=== PATIENT | female | born 1970 | race Caucasian/White ===

== ENCOUNTER 2017-06-15 23:40 | Observation (INO) | payer SELFPAY ==
[~2017-06-15 23:40] MED LIST: LISI10TA3 PO; SODIUM CHLORIDE 0.9% FLUSH 10 ML FLUSH IV FLUSH PRN; TEMAZEPAM 15 MG CAP PO PRN
[2017-06-16] VITALS (9 sets, daily range): BP systolic 121–146; BP diastolic 76–83; PULSE 60–75; RESP 18–22; TEMP 97–98.6; O2SAT 96–99
[2017-06-16] MEDS: SODIUM CHLORIDE 0.9% FLUSH 10 ML FLUSH IV FLUSH SCH ×2 (08:45→20:26)
[2017-06-16] MEDS: LISINOPRIL 10 MG TAB PO SCH (08:46)
[2017-06-16] MEDS: HEPARIN SODIUM - SQ 10,000 UNITS/ML VIAL SQ SCH ×2 (08:46→20:26)
--- NOTE | 2017-06-16 09:32 | HHI.HP ---
HPI Service [facility] Primary Care Physician Non-Staff Admission Diagnosis Diagnoses: (1) Paresthesia Diagnosis: Principal (2) Left leg weakness Diagnosis: Principal (3) Peripheral edema Diagnosis: Principal Chief Complaint: Left-sided paresthesia, left leg weakness Travel History International Travel<30 Days: No Contact w/Intl Traveler <30 Da: No Traveled to Known Affected Are: No History of Present Illness Written by Kody Bernard, acting as scribe for Dr. Mosley on 06/16/17 at 09: 32. This is a 46-year-old female with known history of hypertension who presented to hospital because of shortness breath, dyspnea, left side appears to leg weakness. Patient states that she is in normal state of health and she went down to [facility] to volunteer in disaster relief where she did a lot of physical activity to include removal tree limbs, brush removal. She took a 3 hour bus trip back to [facility] on Thursday. Patient was doing well and then she stated on Thursday she developed general/peripheral edema in which she took one of her stepfather's Lasix and her swelling improved significantly. She was doing well until yesterday when she woke up to take the dog out and she developed shortness of breath, dyspnea on exertion. At 12 noon she started developing left arm paresthesia, left lower extremity weakness. Because of those reasons she went to the emergency department for evaluation. She denied any headache, visual disturbances, speech difficulties, difficulty eating and swallowing food, patient had workup done emergency department. As indicated that she was outside the range for any TPA administration or stroke alert. Patient has CT scan done of the brain which was unremarkable. It was recommended by ER physician that patient be observed in the hospital for further evaluation. At the time evaluating the patient states she may have some mild paresthesia left upper extremity. However the swelling, shortness of breath, weakness have improved. Review of Systems Respiratory: COMPLAINS OF: Shortness of breath Cardiovascular: COMPLAINS OF: Dyspnea on Exertion, Lower Extremity Edema Neurologic: COMPLAINS OF: Localized weakness (left lower extremity), Paresthesias Except as stated in HPI: all other systems reviewed are Neg Past Family Social History Past Medical History Hypertension Past Surgical History Tubal ligation Reported Medications Reported Meds & Active Scripts Active Reported Lisinopril 10 Mg Tab 10 Mg PO DAILY Allergies: Coded Allergies: Penicillins (Verified Allergy, Unknown, 06/15/17) Uncoded Allergies: INDERAL (Allergy, Unknown, 06/15/17) Family History Reviewed is significant for mother alive at age 68 with CHF, diabetes, AICD placement, heart disease. Father at age 64 from diabetes, he had liver transplant Social History Patient denies any tobacco, alcohol or illicit drugs Physical Exam Vital Signs Vital Signs Date Time Temp Pulse Resp B/P (MAP) Pulse Ox O2 Delivery O2 Flow Rate FiO2 06/16/17 08:00 98.1 69 19 126/79 (95) 97 06/16/17 04:00 97.0 65 20 123/82 (96) 98 06/16/17 00:15 60 06/16/17 00:04 98.6 72 22 146/79 (101) 99 Physical Exam GENERAL: Well-developed, well-nourished, in no acute distress. alert and orientated HEENT: Head is normocephalic without any lesions or masses noted. Facial features are symmetric. Eyes: Pupils equal round reactive to light. Extraocular muscles are intact. Conjunctivae were clear. Oropharyngeal: Pharynx without any erythema edema. Tongue is midline without deviation. Buccal mucosa is moist without any masses or lesions NECK: Supple without any masses. Trachea midline no deviation. No JVD, no bruits are appreciated CARDIAC: Regular rhythm, regular rate. S1/S2 are heard. No murmurs gallops or rubs. LUNGS: Clear to auscultation bilaterally. No wheeze, rhonchi or rales. No use of accessory muscles on inspiration or expiration. ABDOMEN: Soft, nontender. Nondistended. Bowel sounds heard in all 4 quadrants. No organomegaly or masses. Negative rebound, negative guarding EXTREMITIES: 1+ nonpitting edema, pulses are equal bilaterally. No cyanosis or clubbing NEUROLOGY: Mood and affect appear appropriate. Cranial nerves II through XII grossly intact. Muscle strength 5/5 in upper and lower extremities bilaterally. Deep tendon reflexes are 2+ in upper and lower extremities bilaterally. Laboratory Laboratory Tests Test 06/16/17 02:00 06/16/17 09:05 Troponin I LESS THAN 0.02 Caprini VTE Risk Assessment Caprini VTE Risk Assessment: Mod/High Risk (score >= 2) Caprini Risk Assessment Model Point Value = 1 Point Value = 2 Point Value = 3 Point Value = 5 Age 41-60 Minor surgery BMI > 25 kg/m2 Swollen legs Varicose veins or History of unexplained or recurrent spontaneous Oral contraceptives or hormone replacement Sepsis (< 1 month) Serious lung disease, including pneumonia (< 1 month) Abnormal pulmonary function Acute myocardial infarction Congestive heart failure (< 1 month) History of inflammatory bowel disease Medical patient at bed rest Age 61-74 Arthroscopic surgery Major open surgery (> 45 min) Laparoscopic surgery (> 45 min) Malignancy Confined to bed (> 72 hours) Immobilizing plaster cast Central venous access Age >= 75 History of VTE Family history of VTE Factor V Leiden Prothrombin [id number] Lupus anticoagulant Anticardiolipin antibodies Elevated serum homocysteine Heparin-induced thrombocytopenia Other congenital or acquired thrombophilia Stroke (< 1 month) Elective arthroplasty Hip, pelvis, or leg fracture Acute spinal cord injury (< 1 month) Prophylaxis Regimen Total Risk Factor Score Risk Level Prophylaxis Regimen 0-1 Low Early ambulation 2 Moderate Order ONE of the following: *Sequential Compression Device (SCD) *Heparin 5000 units SQ BID 3-4 Higher Order ONE of the following medications: *Heparin 5000 units SQ TID *Enoxaparin/Lovenox 40 mg SQ daily (WT < 150 kg, CrCl > 30 mL/min) *Enoxaparin/Lovenox 30 mg SQ daily (WT < 150 kg, CrCl > 10-29 mL/min) *Enoxaparin/Lovenox 30 mg SQ BID (WT < 150 kg, CrCl > 30 mL/min) AND/OR *Sequential Compression Device (SCD) 5 or more Highest Order ONE of the following medications: *Heparin 5000 units SQ TID (Preferred with Epidurals) *Enoxaparin/Lovenox 40 mg SQ daily (WT < 150 kg, CrCl > 30 mL/min) *Enoxaparin/Lovenox 30 mg SQ daily (WT < 150 kg, CrCl > 10-29 mL/min) *Enoxaparin/Lovenox 30 mg SQ BID (WT < 150 kg, CrCl > 30 mL/min) AND *Sequential Compression Device (SCD) Assessment and Plan Assessment and Plan Neurological symptoms to include paresthesia, numbness, weakness of the left upper and lower extremity Patient was outside window for stroke alert or TPA CT scan was done without any acute abnormality Continue further workup with MRI/MRA of the brain, carotid ultrasound, echocardiogram, We'll get PT/OT/ST evaluations We'll start aspirin and statin Shortness of breath, dyspnea on exertion, lower extremity edema Unlikely any component of congestive heart failure, BNP was 12, chest x-ray does not indicate any acute abnormality or congestive pattern Patient has been ruled out for acute coronary event with serial cardiac enzymes which are negative, serial EKG shows sinus rhythm Awaiting echocardiogram for further evaluation and cardiac function Hypertension Patient's home medications have been continued DVT prevention Sequential compression devices Subcutaneous heparin Medical Decision Making Impression and Plan This note was transcribed by raul bernard. I, Dr. Ludy Mosley personally performed the history, physical exam, and medical decision making; and confirmed the accuracy of the information in the transcribed note. Discussed with PT also f/u radiology Authenticated by Dr. Ludy Mosley on 06/16/17 at 9:45. Kody Bernard Jun 16, 2017 09:32 Ludy Mosley MD Jun 16, 2017 09:32
[2017-06-16 09:57] LABS: CREATINE KINASE 93 U/L (26-192)
[2017-06-16] MEDS: ASPIRIN 325 MG TAB PO SCH (10:01)
--- NOTE | 2017-06-16 12:14 | EKG ---
Date Performed: 06/16/2017 Time Performed: 09:05:13 PTAGE: 46 years EKG: Sinus rhythm NORMAL ECG Compared to prior tracing no significant change PREVIOUS TRACING : 06/16/2017 01.45 DOCTOR: Jonathan Blackwood Interpretating Date/Time 06/16/2017 12:10:49
--- NOTE | 2017-06-16 12:15 | EKG ---
Date Performed: 06/16/2017 Time Performed: 01:45:16 PTAGE: 46 years EKG: Sinus rhythm POSSIBLE LEFT ATRIAL ENLARGEMENT BORDERLINE ECG Compared to prior tracing no significant change PREVIOUS TRACING :06/15/17 DOCTOR: Jonathan Blackwood Interpretating Date/Time 06/16/2017 12:12:40
--- NOTE | 2017-06-16 12:50 | ECHRPT ---
Indication: SHORTNESS OF BREATH CONCLUSIONS Normal left ventricular size. Wall thickness is normal. The left ventricular systolic function is hyperdynamic with an estimated ejection fraction in the ra nge of 65- 70%. Doppler parameters are consistent with impaired left ventricular relaxtion (grade 1 diastolic dysfun ction). The left atrial size is mildly dilated. The right atrial size is mildly dilated. No atrial level shunt is demonstrated by color flow Doppler interrogation. Trace mitral valve regurgitation. There is trace tricuspid valve regurgitation. Normal estimated pulmonary pressures. The inferior vena cava (IVC) is normal in size. BP: 126 / 79 HR: 69 Rhythm: Sinus MEASUREMENTS (Male / Female) Normal Values Technical Quality:Fair 2D ECHO LV Diastolic Diameter PLAX 4.3 cm 4.2 - 5.9 / 3.9 - 5.3 cm LV Systolic Diameter PLAX 3.0 cm IVS Diastolic Thickness 0.8 cm 0.6 - 1.0 / 0.6 - 0.9 cm LVPW Diastolic Thickness 0.8 cm 0.6 - 1.0 / 0.6 - 0.9 cm LV Relative Wall Thickness 0.4 LVOT Diameter 1.8 cm Aortic Root Diameter 2.5 cm LA Systolic Diameter LX 3.0 cm 3.0 - 4.0 / 2.7 - 3.8 cm M-MODE AV Cusp Separation MM 1.9 cm DOPPLER AV Peak Velocity 150.0 cm/s AV Peak Gradient 9.0 mmHg AV Mean Gradient 5.0 mmHg AV Velocity Time Integral 24.6 cm LVOT Peak Velocity 77.5 cm/s LVOT Peak Gradient 2.4 mmHg LVOT Velocity Time Integral 14.5 cm LVOT Cardiac Index 1140.0 cm/minm AV Area Cont Eq vti 1.5 cm AV Area Cont Eq pk 1.3 cm Mitral E Point Velocity 58.7 cm/s Mitral A Point Velocity 80.0 cm/s Mitral E to A Ratio 0.7 LV E' Lateral Velocity 7.5 cm/s Mitral E to LV E' Lateral Ratio 7.8 LV E' Septal Velocity 7.2 cm/s Mitral E to LV E' Septal Ratio 8.1 TR Peak Velocity 242.0 cm/s TR Peak Gradient 23.4 mmHg Right Atrial Pressure 10.0 mmHg Pulmonary Artery Systolic Pressu 33.4 mmHg Right Ventricular Systolic Press 33.4 mmHg PV Peak Velocity 64.7 cm/s PV Peak Gradient 1.7 mmHg FINDINGS LEFT VENTRICLE Normal left ventricular size. Wall thickness is normal. The left ventricular systolic function is hyperdynamic with an estimated ejection fraction in the ra nge of 65- 70%. Doppler parameters are consistent with impaired left ventricular relaxtion (grade 1 diastolic dysfun ction). RIGHT VENTRICLE Normal right ventricular size and systolic function. LEFT ATRIUM The left atrial size is mildly dilated. RIGHT ATRIUM The right atrial size is mildly dilated. ATRIAL SEPTUM No atrial level shunt is demonstrated by color flow Doppler interrogation. AORTA The aortic root and proximal ascending aorta are normal in size on limited imaging. MITRAL VALVE Structurally normal mitral valve. Trace mitral valve regurgitation. AORTIC VALVE Trileaflet aortic valve. No aortic valve stenosis or regurgitation. TRICUSPID VALVE Structurally normal tricuspid valve. There is trace tricuspid valve regurgitation. Normal estimated pulmonary pressures. PULMONARY VALVE No pulmonary valve regurgitation or stenosis. VESSELS The inferior vena cava (IVC) is normal in size. PERICARDIUM No pericardial effusion. Luis F Stafford MD, FACC (Electronically Signed) Final Date:16 June 2017 12:49
--- NOTE | 2017-06-16 13:00 | RADRPT ---
EXAM DATE/TIME: 06/16/2017 10:08 [facility] COMPARISON: No previous studies available for comparison. INDICATIONS : Cerebrovascular accident, left sided numbness. MEDICAL HISTORY : Congestive heart failure. Hypertension. Dyspnea. SURGICAL HISTORY : Tubal ligation. ENCOUNTER: Initial ACUITY: 1 day PAIN SCORE: 0/10 LOCATION: Bilateral neck PEAK SYSTOLIC VELOCITIES (cm/sec): ICA/CCA RATIO: Right: 1.0 Left: 1.2 ICA: Right: 96 Left: 107 CCA: Right: 93 Left: 87 ECA: Right: 93 Left: 100 VERTEBRAL: Right: 73 antegrade Left: 92 antegrade Elevated flow velocities and ICA/CCA ratios have been found to correlate with increased degrees of vessel stenosis, calculated as percentage of diameter relative to a normal segment of distal ICA/CCA FINDINGS: RIGHT CAROTID: No significant stenosis is visualized. The waveforms are within normal limits. LEFT CAROTID: No significant stenosis is visualized. The waveforms are within normal limits. VERTEBRAL ARTERIES: Antegrade flow is seen in both vertebral arteries. MISCELLANEOUS: None. CONCLUSION: No evidence of flow-limiting carotid stenosis. Bello Bonilla MD on June 16, 2017 at 12:57 Board Certified Radiologist. This report was verified electronically.
--- NOTE | 2017-06-16 16:01 | RADRPT ---
EXAM DATE/TIME: 06/16/2017 14:31 [facility] COMPARISON: No previous studies available for comparison. INDICATIONS : Left sided weakness. CVA. MEDICAL HISTORY : Hypertension. SURGICAL HISTORY : Tubal ligation. ENCOUNTER: Subsequent ACUITY: 2 day PAIN SCORE: 0/10 LOCATION: head. Please note a normal MRA of the brain does not entirely exclude the possibility of a small aneurysm, nor the possibility of distal intracranial vessel disease. TECHNIQUE: 3D time of flight MRA was performed. Source images, multiplanar STS MIP, and 3D volume MIP reconstru ctions were reviewed. FINDINGS: There is excellent visualization of the major intracranial arteries out to the second-order branch ve ssels. There is no evidence for aneurysm, vessel truncation or stenosis, and no evidence for vascula r malformation. CONCLUSION: 1. Negative examination. Ildefonso Boyer MD on June 16, 2017 at 15:59 Board Certified Radiologist. This report was verified electronically.
--- NOTE | 2017-06-16 16:22 | RADRPT ---
EXAM DATE/TIME: 06/16/2017 14:31 [facility] COMPARISON: CT BRAIN W/O CONTRAST, June 15, 2017, 20:42. INDICATIONS : Left sided weakness. CVA. MEDICAL HISTORY : Hypertension. SURGICAL HISTORY : Tubal ligation. ENCOUNTER: Subsequent ACUITY: 2 day PAIN SCORE: 0/10 LOCATION: head. TECHNIQUE: Multiplanar, multisequence MRI of the brain was performed without contrast. FINDINGS: CEREBRUM: The ventricles are normal for age. No evidence of midline shift, mass lesion, hemorrhage or acute in farction. No extraaxial fluid collections are seen. The pituitary gland and suprasellar cistern are normal in configuration. WHITE MATTER: No significant signal abnormalities are seen in the white matter. POSTERIOR FOSSA: The cerebellum and brainstem are intact. The 4th ventricle is midline. The cerebellopontine angle is unremarkable. The cerebellar tonsils are normal in position. Prominent arachnoid granulations bilat erally DIFFUSION IMAGING: No focal areas of restricted diffusion are seen. No evidence of acute infarction. EXTRACRANIAL: The visualized portions of the orbits and paranasal sinuses are unremarkable. CONCLUSION: No acute intracranial findings Bello Bonilla MD on June 16, 2017 at 16:14 Board Certified Radiologist. This report was verified electronically.
[2017-06-16 18:12] LABS: HEMOGLOBIN A1b 1.4 %; HEMOGLOBIN Ao 86.6 %; HEMOGLOBIN LA1C 2.1 %; HEMOGLOBIN P3 3.4 %
[2017-06-16] MEDS ORDERED: ATORVASTATIN 10 MG TAB PO SCH (21:00)
[2017-06-17] VITALS: BP 120/79; PULSE 76; RESP 18; TEMP 96.5; O2SAT 99
[2017-06-17 03:59] VITALS: BP 122/77; PULSE 77; RESP 19; TEMP 97.2; O2SAT 96
[2017-06-17 08:00] VITALS: BP 139/87; PULSE 84; RESP 18; TEMP 97.4; O2SAT 97
[2017-06-17] MEDS: SODIUM CHLORIDE 0.9% FLUSH 10 ML FLUSH IV FLUSH SCH (09:46)
[2017-06-17] MEDS: LISINOPRIL 10 MG TAB PO SCH (09:47)
[2017-06-17] MEDS: HEPARIN SODIUM - SQ 10,000 UNITS/ML VIAL SQ SCH (09:47)
[2017-06-17] MEDS: ASPIRIN 325 MG TAB PO SCH (09:47)
[2017-06-17] MEDS ORDERED: INFLUENZA VIRUS VACCINE (QUADRIVALENT) 0.5 ML SYR IM ONE (10:00)
[2017-06-17 10:42] LABS: HDL CHOLESTEROL 56.7 MG/DL (40.0-60.0)
--- NOTE | 2017-06-17 11:51 | HHI.PR ---
Subjective Remarks No events overnight, symptoms resolved. Objective Vitals Vital Signs Date Time Temp Pulse Resp B/P (MAP) Pulse Ox O2 Delivery O2 Flow Rate FiO2 06/17/17 08:00 97.4 84 18 139/87 (104) 97 06/17/17 03:59 97.2 77 19 122/77 (92) 96 06/17/17 00:00 96.5 76 18 120/79 (93) 99 06/16/17 21:10 97 21 06/16/17 20:00 97.0 68 19 136/83 (100) 97 06/16/17 20:00 74 06/16/17 20:00 97.0 68 19 136/83 (100) 97 06/16/17 16:00 97.1 75 18 121/83 (96) 96 06/16/17 13:18 98 21 06/16/17 12:00 97.8 72 18 123/76 (92) 98 I/O 06/16/17 06/16/17 06/16/17 06/17/17 06/17/17 06/17/17 07:00 15:00 23:00 07:00 15:00 23:00 Intake Total 0 ml 400 ml Balance 0 ml 400 ml Intake Oral 0 ml 400 ml # Voids 1 Imaging Last Impressions Head Magnetic Resonance Angiography 06/16/17 0000 Signed Impressions: Service Date/Time: Friday, June 16, 2017 14:31 - CONCLUSION: 1. Negative examination. Ildefonso Boyer MD Carotid Artery Ultrasound 06/16/17 0000 Signed Impressions: Service Date/Time: Friday, June 16, 2017 10:08 - CONCLUSION: No evidence of flow-limiting carotid stenosis. Bello Bonilla MD Brain MRI 06/16/17 0000 Signed Impressions: Service Date/Time: Friday, June 16, 2017 14:31 - CONCLUSION: No acute intracranial findings Bello Bonilla MD Objective Remarks GENERAL: 46 yo F, wel nourished, well developed patient, appears in nad. CARDIOVASCULAR: Regular rate and rhythm. RESPIRATORY: No accessory muscle use. Clear to auscultation. Breath sounds equal bilaterally. GASTROINTESTINAL: Abdomen soft, non-tender, nondistended. Hepatic and splenic margins not palpable. MUSCULOSKELETAL: Extremities without clubbing, cyanosis. 1+ nonpitting edema, pulses are equal bilaterally. No obvious deformities. NEUROLOGICAL: Awake and alert. No obvious cranial nerve deficits. Motor grossly within normal limits. Five out of 5 muscle strength in the arms and legs. Normal speech. PSYCHIATRIC: Appropriate mood and affect; insight and judgment normal. A/P Problem List: (1) Paresthesia ICD Code: R20.2 - Paresthesia of skin (2) Left leg weakness ICD Code: R29.898 - Other symptoms and signs involving the musculoskeletal system (3) Peripheral edema ICD Code: R60.9 - Edema, unspecified Assessment and Plan Neurological symptoms to include paresthesia, numbness, weakness of the left upper and lower extremity Patient was outside window for stroke alert or TPA CT scan was done without any acute abnormality MRI/MRA of the brain, carotid ultrasound reviewed and all normal Consult PT/OT/ST evaluation. Recommends no PT Continue aspirin and statin A1c normal, also lipid panel normal Shortness of breath, dyspnea on exertion, lower extremity edema Unlikely any component of congestive heart failure, BNP was 12, chest x-ray does not indicate any acute abnormality or congestive pattern Patient has been ruled out for acute coronary event with serial cardiac enzymes which are negative, serial EKG shows sinus rhythm Echocardiogram reviewed and normal EF Hypertension Patient's home medications have been continued DVT ppx: Sequential compression devices, Subcutaneous heparin Discussed with the patient, nurse Discharge Planning DC home in stable condition. To follow up as OP with PCP and consultants. Diet healthy diet as tolerated Activity ad shakila as tolerated Meds per med reconciliations Sweetie Lopez MD Jun 17, 2017 11:51
[2017-06-17 12:00] VITALS: BP 106/79; PULSE 92; RESP 16; TEMP 98.2; O2SAT 99
--- NOTE | 2017-06-17 12:03 | HHI.DCPOC ---
Discharge Care Plan Goals to Promote Your Health * To prevent worsening of your condition and complications * To maintain your health at the optimal level Directions to Meet Your Goals Take your medications as prescribed Follow your dietary instruction Follow activity as directed Keep your appointments as scheduled Take your immunizations and boosters as scheduled If your symptoms worsen call your PCP, if no PCP go to Urgent Care Center or Emergency Room Smoking is Dangerous to Your Health. Avoid second hand smoke Call the 24-hour hour crisis hotline for domestic abuse at Sweetie Lopez MD Jun 17, 2017 12:03
[2017-06-17 12:28] VITALS: BP 125/77; PULSE 69; RESP 17; TEMP 98.6
== END 2017-06-17 13:00 | disposition home or self-care (01) ==
LOC: PHEDDLT 23:40 → PH3B 23:50
PROVIDERS: ADMIT Hospitalist; ATTEND Hospitalist
DX: R20.2 Paresthesia of skin (principal); R06.02 Shortness of breath; R29.898 Other symptoms and signs involving the musculoskeletal system; R60.0 Localized edema; R53.1 Weakness; R94.31 Abnormal electrocardiogram [ECG] [EKG]; I10 Essential (primary) hypertension
CPT/HCPCS: 70450; 70544; 70551; 71010; 80053; 80061; 82550; 83036; 83880; 84484; 84702; 85025; 85379; 85610; 92610; 93005; 93306; 93880; 96372; 97162; 97166; 99285; G0378; G8987; G8988; G8996; G8997; G8998; J1644